=== PATIENT | female | born 1955 | race Caucasian/White ===

== ENCOUNTER 2016-12-27 09:00 | Observation (INO) | payer OTHER, SELFPAY ==
[2016-12-27 09:20] LABS: #Basophils 0.1 thou/uL (0.0-0.2); #Eosinphils 0.2 thou/uL (0.0-0.7); #Lymphocytes 2.2 thou/uL (1.20-3.40); #Monocytes 0.4 thou/uL (0.11-0.59); #Neutrophils 5.4 thou/uL (1.40-6.50); %Eosinophils 2.3 % (0.0-10.0); %Lymphocytes 26.8 % (21.0-51.0); %Monocytes 5.2 % (0.0-10.0); Hematocrit 49.5 % (36.0-47.0); Mean Platelet Volume 8.1 fL (7.4-10.4); Red Blood Cell (RBC) Count 5.56 mill/uL (4.20-5.40); White Blood Cell (WBC) Count 8.4 thou/uL (4.8-10.8)
--- NOTE | 2016-12-27 09:36 | RAD ---
SINGLE VIEW OF CHEST: Date: 12/27/16 COMPARISON: 02/22/06. HISTORY: Hypertension. FINDINGS: Single view of the chest shows a normal sized cardiomediastinal silhouette. There is no evidence of consolidation, mass, or pleural effusion. The bones are unremarkable. IMPRESSION: No evidence of acute cardiopulmonary disease. POS: [facility]
[2016-12-27] MEDS ORDERED: Aspirin 325 MG TAB ONE (09:37)
[2016-12-27] MEDS ORDERED: Nitroglycerin 0.4 MG TAB (25 Tab Bottle) ONE (09:38)
[2016-12-27 10:06] LABS: ALT (SGPT) 25 U/L (8-55); AST (SGOT) 24 U/L (5-34); Alkaline Phosphatase 59 U/L (40-150); Anion Gap 18 mmol/L (10-20); BUN (Urea Nitrogen) 12 mg/dL (9.8-20.1); Bilirubin, Total 0.6 mg/dL (0.2-1.2); CK (CPK) 121 U/L (29-168); Calc. Creatinine Clearance 0 mL/min (70-130); Calcium 9.6 mg/dL (7.8-10.44); Carbon Dioxide 18 mmol/L (22-29); Chloride 110 mmol/L (98-107); Estimated GFR-MDRD 83; Globulin 3.2 g/dL (2.4-3.5); Lipase 35 U/L (8-78); Protein, Total 7.6 g/dL (6.0-8.3)
--- NOTE | 2016-12-27 11:57 | CT ---
CTA OF THE CHEST AND ABDOMEN WITH CONTRAST: History: Hypertension, chest pain that radiates to the back. Nausea and weakness. Technique: Multiple contiguous axial images were obtained in a CTA of the chest and abdomen with con trast per aortic dissection protocol. 3D sagittal and coronal MIP reformats were performed. FINDINGS: The heart is normal in size without focal cardiac abnormality. No hilar or mediastinal lymphadenopat hy are seen. No suspicious pulmonary nodules are seen. No pneumothorax or pleural effusion are prese nt. The gallbladder has been removed. There is a 1.8 cm cyst in the right kidney. The liver, left kidney , adrenal glands, spleen and pancreas are unremarkable. No free air, free fluid, or stranding change s are seen in the abdomen. The reproductive organs are only visualized. The visualized large and small bowel are unremarkable. The appendix is normal. No abdominal adenopathy is seen. The thoracic and abdominal aorta are normal in caliber without evidence of dissection or aneurysmal dilatation. Mild atherosclerotic disease is seen within the aorta. This is more prominent in the inf rarenal aorta. The celiac trunk, SMA, and MELL are patent. There is a single renal artery on each wilson e. No significant atherosclerotic disease is seen within the mesenteric or renal vasculature. Aorta bifurcates in a normal caliber common iliac artery without significant atherosclerotic disease . Degenerative changes are seen in the spine. The chest and abdominal wall soft tissues are unremarkab le. IMPRESSION: 1. No evidence of aortic dissection or aneurysmal dilatation. 2. Right renal cyst. POS: [facility]
[2016-12-27 12:51] LABS: Troponin I Less than 0.010 ng/mL (< 0.028)
[2016-12-27] MEDS ORDERED: Labetalol HCl 100 MG/20 ML VIAL SLOW IVP PRN (14:10)
[2016-12-27] MEDS ORDERED: Acetaminophen 325 MG TAB PO PRN (14:10)
[2016-12-27] MEDS ORDERED: Nitroglycerin 0.4 MG TAB (25 Tab Bottle) PO PRN (14:10)
[2016-12-27 14:16] VITALS: BMI 36.3
[2016-12-27 14:36] LABS: Hemoglobin A1c 5.6 % (4.0-6.0)
[2016-12-27 14:40] LABS: Magnesium 2.6 mg/dL (1.6-2.6); Phosphorus 2.6 mg/dL (2.3-4.7)
[2016-12-27 15:33] LABS: Troponin I Less than 0.010 ng/mL (< 0.028)
[2016-12-27] MEDS ORDERED: ISOVUE-370 76%-LOCM 1 ML ONE (16:01)
--- NOTE | 2016-12-27 16:36 | HP-2 ---
CODE STATUS: Full. PRIMARY CARE PHYSICIAN: City call. ATTENDING PHYSICIAN: Jamal Vann M.D. RESIDENT: Tho Goss M.D. HISTORIAN: The patient. CHIEF COMPLAINT: High blood pressure. HISTORY OF PRESENT ILLNESS: Ms. Kell Kessler is a 61-year-old female with past medical history si gnificant for hypertension, hyperlipidemia and arthritis who presents with 3-day history of weakness , fatigue and a 1 day history of back pain. She checked her blood pressure today at home and it was 203/103. Patient had intermittent back pain that started last night while she was at rest associat ed with nausea, no diaphoresis. She describes the pain as a dull achy pain rated it as 5/10 and she says it feels deep and it does not really feel like muscular pain. She also endorses a tightness s ensation in the left side of the neck and states that she has never experienced symptoms like this b efore. However, she does endorse history of chest pain in the past, substernal that is worsening wi th exertion and tends to make her short of breath. She states that she has also been gardening more and being a little more physically active lately. ER: In the ER, patient received aspirin and nitro. Initial blood pressure in the ER was in the 220 systolic. Upon arriving to see the patient, her blood pressure had already decreased down to 144/7 2. PAST MEDICAL HISTORY: 1. Hypertension. 2. Hyperlipidemia. 3. Arthritis. 4. Herniated disk in the neck. PAST SURGICAL HISTORY: 1. Cardiac ablation for SVT in 2005. 2. Cholecystectomy. 3. Bilateral tubal ligation. 4. Partial hysterectomy. ALLERGIES: No known drug allergies. MEDICATIONS: None. FAMILY HISTORY: Father had a stroke. SOCIAL HISTORY: A 17-rrze-jvor smoking history, quit 5 years ago. Denies alcohol or drug use. Rohini villarreal is , living with her , have been for the last 25 years, lives in [place] . REVIEW OF SYSTEMS: General: Denies fevers, chills or night sweats. Positive for fatigue and weakn ess and unable to sleep last night. Eyes: Positive for blurry vision 3 days ago that lasted about an hour and then resolved. Denies any eye pain. ENT: Denies nasal congestion, rhinorrhea, sore th roat, but positive for seasonal allergies. Respiratory: Denies cough, congestion, shortness of nova ath, but positive for exercise intolerance. She endorses snoring, but patient's states that he has never noticed that she stops breathing while she is sleeping. Cardiovascular: Positive for chest pain. Denies palpitations, edema, PND or orthopnea. Also states that she has some pain with inspiration today. Gastrointestinal: Positive for nausea. Denies vomiting, diarrhea, constipatio n, abdominal pain or GI bleeding. Genitourinary: Denies incontinence, dysuria, polyuria or dischar ge. Skin: Denies rashes, lesions, jaundice or itching. Musculoskeletal: Positive for pain, tende rness, stiffness and arthritis. Denies any swelling. Neurologic: Positive for whole body weakness . Denies numbness, syncope or seizures. Psychiatric: Denies anxiety or depression. PHYSICAL EXAMINATION: VITAL SIGNS: Blood pressure 144/72, pulse 77, respiratory rate 14, T-max 98.0, pulse ox 96% on room air. Current weight 95.3 kilograms. GENERAL: The patient is alert and oriented x3 in no acute distress, morbidly obese and appropriatel y interactive. EYES: Pupils are equal, round, reactive to light and accommodation. Extraocular muscles and intact . Conjunctivae within normal limits. ENT: Tympanic membranes pearly webster without bulging or erythema. Nasal mucosa within normal limits and oropharynx within normal limits. NECK: Supple, without lymphadenopathy or thyromegaly. No tenderness to palpation over the cervical spine. CARDIOVASCULAR: Regular rate and rhythm. No murmurs, no gallops. Pulses equal bilaterally. Left chest wall tenderness to palpation. RESPIRATORY: Normal effort, no retractions. LUNGS: Clear to auscultation bilaterally. SKIN: Warm and dry without cyanosis or lesions. ABDOMEN: Soft and nontender. Bowel sounds x4. No masses or distention. EXTREMITIES: No clubbing, cyanosis or pitting edema. MUSCULOSKELETAL: Structure and tone within normal limits. Full range of motion. No tenderness to palpation over the thoracic spine. NEUROLOGIC: No focal deficits. Sensation was within normal limits. Cranial nerves II-XII are ronna sly intact. PSYCHIATRIC: Appropriate. LABORATORY DATA: White blood cell count 8.4, hemoglobin 16.8, hematocrit 49.5, platelets 257 and MC V of 89.0. Sodium 142, potassium 4.3, chloride 110, bicarbonate 18, BUN 12, creatinine 0.72, glucos e 127, calcium 96, total protein 7.6, albumin 4.4, AST 24, ALT 25, alkaline phosphatase 59, total bi lirubin 0.6, CK-MB 2.0, troponin 0.01 and lipase 35. IMAGING DATA: EKG showed normal sinus rhythm. Chest x-ray showed no evidence of acute cardiopulmon tim disease. ASSESSMENT AND PLAN: A 61-year-old female with past medical history of hypertension, hyperlipidemia and arthritis, all of which are untreated, presents with back pain and history of chest pain. 1. Hypertensive urgency. Start lisinopril [address] of the chest, dissection protocol. Erwin nd troponins and CK-MB. P.r.n. nitroglycerin. Stress test in the morning. Check fasting lipid jacobson el, hemoglobin A1c, TSH, magnesium and phosphatase. Not currently on any home blood pressure medica tions. Check an ABG and admit to tele observation. 2. Atypical chest pain. Heart score of 4 located in the back, mostly with some neck tightness. St ress test in the morning. Blood pressure control. Start daily aspirin. 3. Polycythemia, likely secondary to obstructive sleep apnea versus [id number]-[id number] smoking history. Obtain ABG. The patient endorses snoring at night, but states that she does not stop breath ing. Recommend outpatient sleep study. 4. Deep venous thrombosis prophylaxis, sequential compression devices. 5. Diet: Heart healthy and n.p.o. at midnight. 6. Activity: Ad shahram. 7. Code status: Full. DISPOSITION AND LENGTH OF HOSPITAL STAY: 1-2 days. Symptomatic medications will be provided. History and physical exam as well as management discussed with Dr. Vann.
--- NOTE | 2016-12-27 18:14 | HP ---
CHIEF COMPLAINT: Neck pain. HISTORY OF PRESENT ILLNESS: Ms. Kessler is a pleasant 61-year-old previously very heavy smoker fem carlos enrique, who presents with left-sided neck pain. She said it is a \\\\"tight feeling\\\\" that is not neces sarily related to exercise or exertion. She denies any retrosternal chest discomfort. She denies a ny associated shortness of breath or diaphoresis. She has been admitted for further evaluation of a possible angina equivalent. PHYSICAL EXAMINATION: GENERAL: The patient is awake and alert. She is slightly obese, pleasant, in no distress. VITAL SIGNS: Her blood pressure is 140/70, her pulse is 67 and regular, respirations 15 and tempera ture 98.4. HEENT: Clear. NECK: Supple. CARDIAC: Her heart rhythm is regular. S4 gallop. No murmur or rub noted. LUNGS: Diminished scattered rhonchi. No rales. No wheezes. No respiratory distress or use of acc essory muscles. ABDOMEN: Flat, soft. No guarding, rebound or rigidity. EXTREMITIES: Trace edema. NEUROLOGIC: Normal. No focal deficits. LABORATORY DATA: Sodium 142, potassium 4.3, chloride 110, bicarbonate is 18, BUN is 12, creatinine is 0.72 and her glucose is 127. Liver enzymes normal. Troponins negative. CBC: White count is 8400, hemoglobin is 16.8 and hematocrit is 49.5. ASSESSMENT: Atypical neck pain, rule out angina equivalent. PLAN: Admit, trend troponins and schedule stress Myoview.
[2016-12-27 20:20] LABS: Oxyhemoglobin 93.6 % (94.0-97.0); Sodium 141 mmol/L (135-148)
[2016-12-27 20:21] LABS: Mode Room Air @21%; Modified Allen's Test POSITIVE; Vent NO
[2016-12-27] MEDS ORDERED: Atorvastatin Calcium 40 MG TAB PO SCH (21:00)
[2016-12-28 05:33] LABS: #Basophils 0.1 thou/uL (0.0-0.2); #Eosinphils 0.2 thou/uL (0.0-0.7); #Lymphocytes 2.3 thou/uL (1.20-3.40); #Monocytes 0.5 thou/uL (0.11-0.59); #Neutrophils 5.9 thou/uL (1.40-6.50); %Basophils 0.8 % (0.0-1.0); %Eosinophils 2.5 % (0.0-10.0); %Lymphocytes 25.3 % (21.0-51.0); %Monocytes 5.6 % (0.0-10.0); Hematocrit 46.8 % (36.0-47.0); Red Blood Cell (RBC) Count 5.24 mill/uL (4.20-5.40)
[2016-12-28 05:58] LABS: Anion Gap 12 mmol/L (10-20); BUN (Urea Nitrogen) 13 mg/dL (9.8-20.1); Calc. Creatinine Clearance 135 mL/min (70-130); Calcium 9.1 mg/dL (7.8-10.44); Carbon Dioxide 24 mmol/L (22-29); Chloride 108 mmol/L (98-107); Cholesterol 234 mg/dl (< 200 Desired); Estimated GFR-MDRD Greater than 90; LDL Cholesterol, Calculated 157 mg/dL
--- NOTE | 2016-12-28 07:43 | PDOC.FM ---
- Subjective Subjective: Pt doing fine tonight. Resting and sleeping in bed. Denies any acute events overnight. Denies any chest pain or SOB. No other concerns at this time. - Objective MAR Reviewed: Yes Vital Signs & Weight: Vital Signs (12 hours) Temp Pulse Resp BP Pulse Ox 12/28/16 04:55 98.3 F 69 16 126/65 98 12/27/16 20:13 98.6 F 74 18 Weight Weight 94.483 kg I&O: 12/27/16 12/28/16 12/29/16 06:59 06:59 06:59 Intake Total 480 Output Total 900 Balance -420 Result Diagrams: 12/28/16 04:52 12/28/16 04:52 Radiology Reviewed by me: Yes Radiology: CT chest: no evidence dissection CXR; no evidence cardiopulmonary dz Phys Exam - Physical Examination Constitutional: NAD HEENT: PERRLA, moist MMs, oral pharynx no lesions Respiratory: no wheezing, no rales, no rhonchi, clear to auscultation bilateral Cardiovascular: RRR, no significant murmur, no rub Gastrointestinal: soft, non-tender, no distention, positive bowel sounds Musculoskeletal: no edema Neurological: normal sensation Psychiatric: normal affect, A&O x 3 Skin: no rash, cap refill <2 seconds Dx/Plan (1) Atypical chest pain Code(s): R07.89 - OTHER CHEST PAIN Status: Acute (2) Hypertensive urgency Code(s): I16.0 - HYPERTENSIVE URGENCY Status: Acute (3) Paroxysmal a-fib Code(s): I48.0 - PAROXYSMAL ATRIAL FIBRILLATION Status: Acute (4) Hyperlipidemia Code(s): E78.5 - HYPERLIPIDEMIA, UNSPECIFIED Status: Acute - Plan Plan: Atypical Chest Pain -Troponin normal -Stress Test this morning, will await results -Started on Aspirin HTN Urgency -Started on Lisinopril, BP stable this morning -Will continue to monitor -IV hydralazine as needed if above 180 HLD -Cholesterol a little high -Possibly increase dose of statin paroxysmal A. fib -On aspirin -On tele monitoring -vitals stable
[2016-12-28] MEDS ORDERED: Aspirin 81 mg Enteric Coated Tablet PO SCH (09:00)
[2016-12-28] MEDS ORDERED: Lisinopril 10 MG TAB PO SCH (09:00)
[2016-12-28 12:05] VITALS: BP 134/62; TEMP 98.7
--- NOTE | 2016-12-28 14:45 | NM ---
NUCLEAR MEDICINE CARDIAC PERFUSION EXAMINATION WITH EJECTION FRACTION: HISTORY: 61-year-old female with chest pain, hyperlipidemia, and smoking history. TECHNIQUE: A two day nuclear medicine cardiac perfusion examination was performed. Rest images were obtained us ing 28 mCi of technetium-99m sestamibi. Stress images were obtained using 29.1 mCi of technetium-99m sestamibi and Adenosine. FINDINGS: Tomographic images show no fixed or reversible perfusion defects. Gated images show normal wall opal on with an ejection fraction of greater than 70%. EDV: 70 ml LHR: 0.3 TID: 1.25 IMPRESSION: No evidence of ischemia. POS: [facility]
--- NOTE | 2016-12-28 16:07 | ADD-PRG ---
DATE OF SERVICE: 12/28/2016 ADDENDUM This is an addendum to the note of Dr. Javi Bernal. Ms. Kessler is currently in Cardiology daniel sprague her stress Myoview. I examined and talked to her down there. She feels fine. She has had no fu rther neck discomfort. I did discuss with her at length. Her abnormal arterial blood gas, reflecti darcie the fact that she does have a degree of hypoxemia from her previous [id number]-[id number] history of venkat sprague. I explained to her the importance of exercise as well as immunizations for pneumococcus and inf luenza. She understands and agrees to these. Pending results of her stress Myoview. We will disch arge her if normal.
[2016-12-28] MEDS ORDERED: ADENOSINE 60 MG/20 ML VIAL ONE (16:41)
--- NOTE | 2017-01-01 08:23 | DIS-2 ---
LOCATION OF DISCHARGE: From [facility]. DATE OF ADMISSION: 12/27/2016 DATE OF DISCHARGE: 12/28/2016 RESIDENT: Javi Bernal M.D. ADMITTING ATTENDING: Dr. Jamal Vann DISCHARGE ATTENDING: Dr. Jamal Vann CONSULTATIONS: None. PROCEDURES: A stress test. PRIMARY DIAGNOSES: 1. Atypical chest pain. 2. Hypertensive urgency. 3. Paroxysmal atrial fibrillation. 4. Hyperlipidemia. DISCHARGE MEDICATIONS: Aspirin, atorvastatin, lisinopril, nitroglycerin, acetaminophen and lisinopr il. There were no discontinued medications. HISTORY OF PRESENT ILLNESS AND HOSPITAL COURSE: This is a 61-year-old female who came in and said s he checked her blood pressure at home, it was 203/103. She started having back pain at night with r est. Denied any shortness of breath. She also had a tightness sensation on the left side of the ne ck and reported substernal chest pain with exertion and tends to make her shortness of breath when s he does that. The patient got a CT scan in the ER to check for aortic dissection. There was no irineo dence of aortic dissection. They got a chest x-ray that showed no acute cardiopulmonary abnormality at this time, so we started her on lisinopril, trended her CK-MB which normal throughout. She had a stress test which was normal. Checked TSH, magnesium, phosphate, all were within normal limits. She was not on any home blood pressure medication, so we started her on lisinopril. Her blood press ure stabilized overnight and her chest pain went away overnight. Denied any more complaints or conc erns and she was stable to be discharged. DISPOSITION: Stable. DISCHARGE INSTRUCTIONS: 1. Location: Home. 2. Diet: Heart. 3. Activity: As tolerated. 4. Followup: Will follow up with PCP in the next few weeks to continue to work on blood pressure m anagement and titration of her medication.
== END 2016-12-28 17:22 | disposition home or self-care (01) ==
LOC: ERS 09:00 → 2SW 11:05
PROVIDERS: ADMIT Family Medicine; ATTEND Family Medicine
DX: M54.2 Cervicalgia (principal); I10 Essential (primary) hypertension; E78.5 Hyperlipidemia, unspecified; F17.210 Nicotine dependence, cigarettes, uncomplicated; M19.90 Unspecified osteoarthritis, unspecified site; Z90.49 Acquired absence of other specified parts of digestive tract; Z98.51 Tubal ligation status; Z98.890 Other specified postprocedural states
CPT/HCPCS: 36415; 71010; 71275; 78452; 80048; 80053; 80061; 82553; 82805; 83036; 83690; 83735; 84100; 84443; 84484; 85025; 93005; 93017; A9500; G0378; J0153

== ENCOUNTER 2018-04-29 09:16 | Emergency (ER) | payer OTHER, SELFPAY ==
[2018-04-29 09:47] LABS: #Basophils 0.1 thou/uL (0.0-0.2); #Eosinphils 0.1 thou/uL (0.0-0.7); #Lymphocytes 2.3 thou/uL (1.20-3.40); #Monocytes 0.4 thou/uL (0.11-0.59); #Neutrophils 4.8 thou/uL (1.40-6.50); %Basophils 1.6 % (0.0-1.0); %Eosinophils 1.8 % (0.0-10.0); %Lymphocytes 29.5 % (21.0-51.0); %Monocytes 4.9 % (0.0-10.0); %Neutrophils 62.3 % (42.0-75.0); Hemoglobin 16.1 g/dL (12.0-16.0); Mean Corpuscular HGB CONC 33.1 g/dL (32.0-36.0); Mean Corpuscular Hemoglobin 29.4 pg (27.0-31.0); Mean Corpuscular Volume 88.9 fL (78.0-98.0); Mean Platelet Volume 9.2 fL (7.4-10.4); Platelet Count 241 thou/uL (130-400); RBC Distribution Width 11.8 % (11.5-14.5); Red Blood Cell (RBC) Count 5.47 mill/uL (4.20-5.40); White Blood Cell (WBC) Count 7.7 thou/uL (4.8-10.8)
[2018-04-29 10:12] LABS: ALT (SGPT) 19 U/L (8-55); AST (SGOT) 24 U/L (5-34); Albumin 4.6 g/dL (3.4-4.8); Alkaline Phosphatase 57 U/L (40-150); Anion Gap 16 mmol/L (10-20); BUN (Urea Nitrogen) 13 mg/dL (9.8-20.1); Bilirubin, Total 0.7 mg/dL (0.2-1.2); Calc. Creatinine Clearance 0 mL/min (70-130); Calcium 9.7 mg/dL (7.8-10.44); Carbon Dioxide 21 mmol/L (23-31); Chloride 109 mmol/L (98-107); Estimated GFR-MDRD 86; Globulin 2.7 g/dL (2.4-3.5); Glucose 111 mg/dL (80-115); Potassium 4.8 mmol/L (3.5-5.1); Protein, Total 7.3 g/dL (6.0-8.3); Sodium 141 mmol/L (136-145)
--- NOTE | 2018-04-29 10:12 | RAD ---
CHEST 1 VIEW: HISTORY: Hypertension and dizziness. COMPARISON: Radiograph 12/27/2016. FINDINGS: Lungs are clear. No pneumothorax or effusion. Cardiac silhouette and mediastinal contours are withi n normal limits. No acute osseous abnormality. IMPRESSION: No acute intrathoracic abnormality. POS: [facility]
[2018-04-29] MEDS ORDERED: cloNIDine 0.1 MG TAB ONE (10:17)
--- NOTE | 2018-04-29 10:29 | CT ---
CT OF HEAD NONCONTRAST: CLINICAL INDICATION: Altered mental status. FINDINGS: There is no evidence of acute intracranial hemorrhage, mass effect, or midline shift. The imaged par anasal sinuses and mastoid air cells are clear. Calvarium is intact. There is a small dural-based c alcification overlying the high right frontal convexity. IMPRESSION: No acute intracranial abnormality. POS: [facility]
== END 2018-04-29 11:05 | disposition home or self-care (01) ==
LOC: ERS 09:16
DX: I10 Essential (primary) hypertension (principal); E78.5 Hyperlipidemia, unspecified; Z87.891 Personal history of nicotine dependence
CPT/HCPCS: 70450; 71045; 80053; 83880; 84484; 85025; 93005

== ENCOUNTER 2023-12-05 23:52 | Emergency (ER) | payer MEDICARE, SELFPAY ==
[2023-12-06 00:11] LABS: #Basophils 0.08 10x3/uL (0.0-0.2); %Basophils 0.8 % (0.0-1.0); %Eosinophils 2.2 % (0.0-10.0); %Lymphocytes 25.6 % (21.0-51.0); %Monocytes 6.1 % (0.0-10.0); Hemoglobin 15.8 g/dL (12.0-16.0); Mean Corpuscular HGB CONC 34.3 g/dL (32.0-36.0); Mean Corpuscular Hemoglobin 29.5 pg (27.0-31.0); Mean Corpuscular Volume 85.8 fL (78.0-98.0); Mean Platelet Volume 10.9 fL (7.4-10.4); Platelet Count 255 10x3/uL (130-400); RBC Distribution Width 13.1 % (11.5-14.5); Red Blood Cell (RBC) Count 5.36 mill/uL (4.20-5.40)
[2023-12-06 00:44] LABS: ALT (SGPT) 23 U/L (8-55); AST (SGOT) 17 U/L (5-34); Albumin 4.1 g/dL (3.4-4.8); Alkaline Phosphatase 71 U/L (40-110); Anion Gap 15 mmol/L (10-20); BUN (Urea Nitrogen) 17 mg/dL (9.8-20.1); Bilirubin, Total 0.6 mg/dL (0.2-1.2); Calc. Creatinine Clearance 0 mL/min (70-130); Carbon Dioxide 21 mmol/L (23-31); Chloride 110 mmol/L (98-107); Estimated GFR 84; Globulin 3.1 g/dL (2.4-3.5); Glucose 119 mg/dL (80-115); Potassium 3.8 mmol/L (3.5-5.1); Protein, Total 7.2 g/dL (5.8-8.1); Sodium 142 mmol/L (136-145)
[2023-12-06 00:46] LABS: Troponin I Less than 0.010 ng/mL (< 0.028)
[2023-12-06] MEDS ORDERED: hydrALAZINE 20 MG/ML VIAL ONE (01:21)
[2023-12-06] MEDS ORDERED: Ketorolac Tromethamine 30 MG (1 mL) VIAL ONE (01:21)
[2023-12-06] MEDS ORDERED: Morphine 2 MG/ML VIAL ONE ×2 (02:41→03:35)
[2023-12-06] MEDS ORDERED: Ondansetron PF 4 MG/2 ML Vial ONE ×2 (02:42→03:45)
[2023-12-06] MEDS ORDERED: Labetalol HCl 100 MG/20 ML VIAL ONE (02:42)
[2023-12-06 04:40] LABS: #Basophils 0.07 10x3/uL (0.0-0.2); %Basophils 0.8 % (0.0-1.0); %Eosinophils 1.8 % (0.0-10.0); %Monocytes 4.9 % (0.0-10.0); %Neutrophils 62.9 % (42.0-75.0); Hematocrit 44.2 % (36.0-47.0); Hemoglobin 14.7 g/dL (12.0-16.0); Mean Corpuscular HGB CONC 33.3 g/dL (32.0-36.0); Mean Corpuscular Hemoglobin 28.8 pg (27.0-31.0); Mean Corpuscular Volume 86.5 fL (78.0-98.0); Platelet Count 243 10x3/uL (130-400); RBC Distribution Width 13.1 % (11.5-14.5); Red Blood Cell (RBC) Count 5.11 mill/uL (4.20-5.40)
[2023-12-06 05:34] LABS: Troponin I Less than 0.010 ng/mL (< 0.028)
[2023-12-06 05:36] LABS: ALT (SGPT) 31 U/L (8-55); AST (SGOT) 45 U/L (5-34); Albumin 3.6 g/dL (3.4-4.8); Alkaline Phosphatase 63 U/L (40-110); Anion Gap 15 mmol/L (10-20); BUN (Urea Nitrogen) 17 mg/dL (9.8-20.1); Bilirubin, Total 0.6 mg/dL (0.2-1.2); Calc. Creatinine Clearance 0 mL/min (70-130); Calcium 8.8 mg/dL (7.8-10.44); Carbon Dioxide 20 mmol/L (23-31); Chloride 111 mmol/L (98-107); Estimated GFR 89; Globulin 2.4 g/dL (2.4-3.5); Glucose 174 mg/dL (80-115); Lipase 34 U/L (8-78); Potassium 3.5 mmol/L (3.5-5.1); Sodium 142 mmol/L (136-145)
[2023-12-06] MEDS ORDERED: Iopamidol-370 76% 500 ML MDV (1 ML CHARGE) ONE (11:55)
== END 2023-12-06 06:16 | disposition home or self-care (01) ==
LOC: ERS 23:52
DX: I10 Essential (primary) hypertension (principal); R11.2 Nausea with vomiting, unspecified; I48.91 Unspecified atrial fibrillation; E78.5 Hyperlipidemia, unspecified; Z87.891 Personal history of nicotine dependence; Z79.899 Other long term (current) drug therapy
CPT/HCPCS: 70450; 71275; 74174; 80053 ×2; 83690; 84484 ×2; 85025 ×2; 93005; 96374; 96375; 96376; 99284; J0360; J1885; J2272; J2405; Q9967; 36415

== ENCOUNTER 2024-11-26 08:09 | Outpatient (CLI) | payer MEDICARE, OTHER ==
[2024-11-26 09:09] LABS: #Basophils 0.06 10x3/uL (0.0-0.2); #Eosinophils 0.25 10x3/uL (0.0-0.7); #Monocytes 0.55 10x3/uL (0.11-0.59); #Neutrophils 5.16 10x3/uL (1.40-6.50); %Basophils 0.7 % (0.0-1.0); %Eosinophils 3.0 % (0.0-10.0); %Lymphocytes 28.4 % (21.0-51.0); %Monocytes 6.5 % (0.0-10.0); %Neutrophils 61.2 % (42.0-75.0); Hematocrit 48.0 % (36.0-47.0); Hemoglobin 16.1 g/dL (12.0-16.0); Mean Corpuscular Hemoglobin 28.8 pg (27.0-31.0); Mean Corpuscular Volume 85.9 fL (78.0-98.0); Platelet Count 253 10x3/uL (130-400); Red Blood Cell (RBC) Count 5.59 mill/uL (4.20-5.40); White Blood Cell (WBC) Count 8.43 10x3/uL (4.8-10.8)
[2024-11-26 09:22] LABS: Anion Gap 14 mmol/L (10-20); BUN (Urea Nitrogen) 12 mg/dL (9.8-20.1); Calc. Creatinine Clearance 0 mL/min (70-130); Calcium 9.3 mg/dL (7.8-10.44); Carbon Dioxide 22 mmol/L (23-31); Chloride 108 mmol/L (98-107); Glucose 132 mg/dL (80-115); Potassium 3.9 mmol/L (3.5-5.1); Sodium 140 mmol/L (136-145)
== END 2024-11-26 08:10 | disposition home or self-care (01) ==
LOC: LABBT 08:09
PROVIDERS: ATTEND Thoracic Surgery (Cardiothoracic Vascular Surgery)
DX: Z01.818 Encounter for other preprocedural examination (principal); I65.22 Occlusion and stenosis of left carotid artery
CPT/HCPCS: 80048; 85025; 93005; 93010

== ENCOUNTER 2024-11-29 08:30 | Inpatient (IN) | payer MEDICARE ==
[2024-12-01] MEDS ORDERED: CEFAZOLIN 1 GM VIAL ONE (08:14)
[2024-12-01] MEDS ORDERED: fentaNYL PF 100 MCG/2 ML SYRINGE ONE ×2 (08:46→10:12)
[2024-12-01] MEDS ORDERED: PROPOFOL 20 ML ONE (08:46)
[2024-12-01] MEDS ORDERED: Rocuronium Bromide 10 MG/ML (10ML VIAL) ONE (08:46)
[2024-12-01] MEDS ORDERED: Heparin 10,000 UNITS/ 10 ML VIAL ONE (09:04)
[2024-12-01] MEDS ORDERED: Glycopyrrolate 0.2 MG/ML 5 ML SYRINGE ONE ×2 (09:05→09:55)
[2024-12-01] MEDS ORDERED: Heparin 5,000 UNITS/ML VIAL ONE (09:15)
[2024-12-01] MEDS ORDERED: Ondansetron PF 4 MG/2 ML Vial ONE (10:41)
[2024-12-01] MEDS ORDERED: SUGAMMADEX SODIUM 200 MG/2 ML VIAL ONE ×2 (10:43→10:48)
[2024-12-01] MEDS ORDERED: PHENYLEPHRINE-NS 100 MCG/ML 10 ML SYRINGE ONE (10:47)
[2024-12-01] MEDS ORDERED: Phenylephrine 40 MG/NS 250 ML 250 ML ONE (10:47)
[2024-12-01] MEDS ORDERED: hydrALAZINE 20 MG/ML VIAL SLOW IVP PRN (11:00)
[2024-12-01] MEDS ORDERED: Phenylephrine 40 MG/NS 250 ML 250 ML IVPB PRN (11:00)
[2024-12-01] MEDS ORDERED: Nitroglycerin 50 MG/250 ML BOT 250 ML IVPB PRN (11:00)
[2024-12-01] MEDS ORDERED: Ondansetron PF 4 MG/2 ML Vial IVP PRN (11:00)
[2024-12-01] MEDS ORDERED: ePHEDrine 50 MG/ML VIAL ONE (11:11)
[2024-12-01 19:21] VITALS: BMI 37.6
[2024-12-01] MEDS: Ezetimibe 10 MG TAB PO SCH (22:26)
[2024-12-01] MEDS: Losartan 25 MG TAB PO SCH (22:28)
[2024-12-01 22:29] VITALS: BP 109/44
[2024-12-02] MEDS: Acetaminophen 325 MG TAB PO PRN (07:13)
[2024-12-02] MEDS: Aspirin 81 mg Enteric Coated Tablet PO SCH (08:56)
[2024-12-02 08:57] VITALS: TEMP 98.9
== END 2024-12-02 10:55 | disposition home or self-care (01) | DRG 36 ==
LOC: SURG A 12-01 07:51 → CCU 12-01 12:15
PROVIDERS: ADMIT Thoracic Surgery (Cardiothoracic Vascular Surgery); ATTEND Thoracic Surgery (Cardiothoracic Vascular Surgery)
PROC: 037 Upper Arteries, Dilation (ICD-10-PCS; principal; 2024-12-01)
PROC: 3E03329 Introduction of Other Anti-infective into Peripheral Vein, Percutaneous Approach (ICD-10-PCS; 2024-12-01)
PROC: 3E033XZ Introduction of Vasopressor into Peripheral Vein, Percutaneous Approach (ICD-10-PCS; 2024-12-01)
DX: I65.23 Occlusion and stenosis of bilateral carotid arteries (principal); Z79.899 Other long term (current) drug therapy; E78.5 Hyperlipidemia, unspecified; K21.9 Gastro-esophageal reflux disease without esophagitis; Z72.0 Tobacco use; M19.90 Unspecified osteoarthritis, unspecified site; Z98.890 Other specified postprocedural states; Z90.49 Acquired absence of other specified parts of digestive tract; Z90.79 Acquired absence of other genital organ(s); Z79.82 Long term (current) use of aspirin
CPT/HCPCS: 94640; C1725; C1769; C1876; C1884; J0169; J0665; J0690; J1642; J1644; J2704; J2720; J3490; J7030; P9045